=== PATIENT | male | born 1940 | race Caucasian/White ===

== ENCOUNTER 2021-10-19 10:20 | Observation (INO) ==
[2021-10-19 11:23] LABS: Basophils # 0.1 K/mcL (0.0-0.2); Basophils % 0.6 %; Eosinophils # 0.2 K/mcL (0.0-0.6); Eosinophils % 2.2 %; Hematocrit 37.8 % (37.5-50.1); Hemoglobin 13.4 g/dL (12.9-16.9); Immature Granulocytes % 0.8 % (0-4); Lymphocytes # 1.8 K/mcL (0.6-4.6); Lymphocytes % 17.6 %; Mean Corpuscular HGB Conc 35.4 g/dL (31.6-35.5); Mean Corpuscular Hemoglobin 32.4 pg (28.0-33.3); Mean Corpuscular Volume 91.3 fL (83.0-100.0); Mean Platelet Volume 9.7 fL (9.4-12.4); Monocytes # 0.8 K/mcL (0.0-1.3); Monocytes % 8.4 %; Platelet Count 287 K/mcL (140-400); Red Blood Count 4.14 M/mcL (4.19-5.50); Segmented Neutrophils % 70.4 %
[2021-10-19] MEDS ORDERED: Iopamidol - 370 500 ML MLS IVP ONE (11:30)
[2021-10-19 11:42] LABS: Albumin 4.3 g/dL (3.5-5.7); Albumin/Globulin Ratio 1.3 (1.1-2.2); Bilirubin,Direct 0.1 mg/dL (0.0-0.2); Bilirubin,Indirect 0.4 mg/dL (0.0-1.0); Bilirubin,Total 0.5 mg/dL (0.3-1.0); Calcium 9.7 mg/dL (8.6-10.3); Globulin 3.2 g/dL (2.4-3.5); Potassium 3.8 mEq/L (3.5-5.1); Total Protein 7.5 g/dL (6.4-8.9)
[2021-10-19 12:27] LABS: Bilirubin,Urine Negative (Negative); Blood,Urine Trace (Negative); Clarity,Urine Clear (Clear); Color,Urine Colorless (Yellow); Glucose,Urine (UA) Normal (Normal); Ketones,Urine Negative (Negative); Leukocyte Esterase,Urine Negative (Negative); Nitrite,Urine Negative (Negative); Protein,Urine Negative (Neg-Trace); RBC,Urine 0-3 per hpf (0-3); Specific Gravity,Urine 1.021 (1.010-1.025); Urobilinogen,Urine Normal (Normal); WBC,Urine 0-3 per hpf (0-3)
[2021-10-19] MEDS ORDERED: Ibuprofen 400 MG TABLET PO ONE (18:09)
[2021-10-19] MEDS: Simethicone 80 MG TAB.CHEW PO SCH ×2 (18:26→21:01)
[2021-10-19] MEDS ORDERED: Naloxone 0.4 MG/ML INJ IVP PRN (19:42)
[2021-10-19] MEDS ORDERED: lisinopriL 20 MG TABLET PO SCH (19:45)
[2021-10-19] MEDS: lisinopriL 20 MG TABLET PO SCH (21:01)
[2021-10-19] MEDS ORDERED: NIFEdipine Immed Rel 10 MG CAPSULE PO ONE (21:18)
[2021-10-20] MEDS ORDERED: Acetaminophen IV 1,000 MG/100 ML BAG IVPB ONE (00:08)
[2021-10-20] MEDS ORDERED: Ondansetron 4 MG/2 ML VIAL IVP ONE (00:46)
[2021-10-20] MEDS: Melatonin 3 MG TABLET PO SCH ×2 (03:40→20:46)
[2021-10-20 04:51] LABS: Hematocrit 35.5 % (37.5-50.1); Hemoglobin 12.6 g/dL (12.9-16.9); Mean Corpuscular HGB Conc 35.5 g/dL (31.6-35.5); Mean Corpuscular Hemoglobin 32.2 pg (28.0-33.3); Mean Corpuscular Volume 90.8 fL (83.0-100.0); Mean Platelet Volume 9.7 fL (9.4-12.4); Platelet Count 288 K/mcL (140-400); Red Blood Count 3.91 M/mcL (4.19-5.50)
[2021-10-20 04:52] LABS: White Blood Count 17.7 K/mcL (4.3-11.1)
[2021-10-20 05:13] LABS: Calcium 8.9 mg/dL (8.6-10.3); Potassium 3.6 mEq/L (3.5-5.1)
[2021-10-20] MEDS ORDERED: Acetaminophen 325 MG TABLET PO ONE (05:24)
[2021-10-20] MEDS: *HR* Enoxaparin 40 MG/0.4 ML SYRINGE SQ SCH (05:24)
[2021-10-20] MEDS: Simethicone 80 MG TAB.CHEW PO SCH (08:18)
[2021-10-20] MEDS: lisinopriL 20 MG TABLET PO SCH (08:18)
[2021-10-20] MEDS ORDERED: lisinopriL 10 MG TABLET PO ONE (12:30)
[2021-10-20 17:27] LABS: Bilirubin,Urine Negative (Negative); Blood,Urine Moderate (Negative); Clarity,Urine Clear (Clear); Color,Urine Yellow (Yellow); Glucose,Urine (UA) Normal (Normal); Ketones,Urine 20 mg/dL (Negative); Leukocyte Esterase,Urine Negative (Negative); Mucus,Urine Few per lpf (None-Few); Nitrite,Urine Negative (Negative); PH,Urine 6.5 pH Units (5.0-8.0); Protein,Urine Trace mg/dL (Neg-Trace); RBC,Urine 50-100 per hpf (0-3); Specific Gravity,Urine 1.025 (1.010-1.025); Urobilinogen,Urine Normal (Normal)
[2021-10-20] MEDS ORDERED: Ibuprofen 400 MG TABLET PO ONE (18:40)
[2021-10-20 21:36] LABS: Hematocrit 33.2 % (37.5-50.1); Hemoglobin 11.9 g/dL (12.9-16.9); Mean Corpuscular HGB Conc 35.8 g/dL (31.6-35.5); Mean Corpuscular Hemoglobin 32.2 pg (28.0-33.3); Mean Corpuscular Volume 89.7 fL (83.0-100.0); Mean Platelet Volume 9.7 fL (9.4-12.4); Platelet Count 276 K/mcL (140-400); White Blood Count 16.2 K/mcL (4.3-11.1)
[2021-10-20] MEDS ORDERED: *HR* LORazepam 2 MG/ML VIAL IVP ONE (21:39)
[2021-10-21] MEDS ORDERED: Ondansetron 4 MG/2 ML VIAL IVP PRN (02:15)
[2021-10-21] MEDS ORDERED: *HR* LORazepam 2 MG/ML VIAL IVP ONE (02:17)
[2021-10-21] MEDS: levoFLOXacin 750 MG/150 ML 750 MG/150 ML BAG IVPB SCH (02:42)
[2021-10-21] MEDS ORDERED: *HR* HYDROcodone/Acet 5/325 mg TABLET PO ONE (05:02)
[2021-10-21] MEDS: *HR* Enoxaparin 40 MG/0.4 ML SYRINGE SQ SCH (05:13)
[2021-10-21 05:22] LABS: Basophils % 0.2 %; Eosinophils % 0.1 %; Hemoglobin 11.7 g/dL (12.9-16.9); Immature Granulocytes % 0.7 % (0-4); Lymphocytes % 6.2 %; Mean Corpuscular HGB Conc 35.5 g/dL (31.6-35.5); Mean Corpuscular Hemoglobin 31.8 pg (28.0-33.3); Mean Corpuscular Volume 89.7 fL (83.0-100.0); Mean Platelet Volume 10.1 fL (9.4-12.4); Monocytes # 1.2 K/mcL (0.0-1.3); Monocytes % 7.5 %; Neutrophils # 13.8 K/mcL (1.6-8.9); Platelet Count 272 K/mcL (140-400); Red Blood Count 3.68 M/mcL (4.19-5.50); Red Cell Distribution Width 11.9 % (11.5-14.5); Segmented Neutrophils % 85.3 %; White Blood Count 16.2 K/mcL (4.3-11.1)
[2021-10-21 05:37] LABS: Calcium 8.6 mg/dL (8.6-10.3); Magnesium 1.9 mg/dL (1.6-2.6); Phosphorous 2.6 mg/dL (2.7-4.5); Potassium 3.5 mEq/L (3.5-5.1)
[2021-10-21 06:01] LABS: Folate 16.8 ng/mL (3.0-16.0)
[2021-10-21] MEDS: 0.9 % Sodium Chloride 1,000 ML IVC SCH ×2 (08:21→21:26)
[2021-10-21] MEDS: lisinopriL 20 MG TABLET PO SCH (08:25)
[2021-10-21] MEDS: *HR* HYDROcodone/Acet 5/325 mg TABLET PO PRN (16:15)
[2021-10-21 20:26] LABS: Calcium 8.1 mg/dL (8.6-10.3); Potassium 3.4 mEq/L (3.5-5.1)
[2021-10-21] MEDS: Melatonin 3 MG TABLET PO SCH (21:26)
[2021-10-22] MEDS: *HR* HYDROcodone/Acet 5/325 mg TABLET PO PRN ×3 (00:17→22:33)
[2021-10-22] MEDS: levoFLOXacin 750 MG/150 ML 750 MG/150 ML BAG IVPB SCH (02:55)
[2021-10-22] MEDS: QUEtiapine Fumarate 25 MG TABLET PO PRN (04:01)
[2021-10-22] MEDS: *HR* Enoxaparin 40 MG/0.4 ML SYRINGE SQ SCH (05:05)
[2021-10-22 05:59] LABS: Basophils % 0.2 %; Eosinophils # 0.1 K/mcL (0.0-0.6); Eosinophils % 0.8 %; Hematocrit 30.2 % (37.5-50.1); Hemoglobin 10.5 g/dL (12.9-16.9); Immature Granulocytes % 0.7 % (0-4); Lymphocytes # 1.3 K/mcL (0.6-4.6); Lymphocytes % 10.7 %; Mean Corpuscular HGB Conc 34.8 g/dL (31.6-35.5); Mean Corpuscular Hemoglobin 31.7 pg (28.0-33.3); Mean Corpuscular Volume 91.2 fL (83.0-100.0); Monocytes % 8.1 %; Neutrophils # 9.8 K/mcL (1.6-8.9); Platelet Count 249 K/mcL (140-400); Red Blood Count 3.31 M/mcL (4.19-5.50); Red Cell Distribution Width 12.3 % (11.5-14.5); Segmented Neutrophils % 79.5 %; White Blood Count 12.3 K/mcL (4.3-11.1)
[2021-10-22 06:24] LABS: Calcium 8.2 mg/dL (8.6-10.3); Magnesium 1.9 mg/dL (1.6-2.6); Phosphorous 2.5 mg/dL (2.7-4.5); Potassium 3.4 mEq/L (3.5-5.1)
[2021-10-22] MEDS: lisinopriL 20 MG TABLET PO SCH (08:21)
[2021-10-22] MEDS: 0.9 % Sodium Chloride 1,000 ML IVC SCH ×2 (10:20→22:29)
[2021-10-22] MEDS: Melatonin 3 MG TABLET PO SCH (22:28)
[2021-10-23] MEDS: QUEtiapine Fumarate 25 MG TABLET PO PRN (01:51)
[2021-10-23 03:01] LABS: Basophils # 0.1 K/mcL (0.0-0.2); Basophils % 0.7 %; Eosinophils # 0.2 K/mcL (0.0-0.6); Hematocrit 31.1 % (37.5-50.1); Hemoglobin 11.1 g/dL (12.9-16.9); Immature Granulocytes % 0.7 % (0-4); Lymphocytes # 1.9 K/mcL (0.6-4.6); Lymphocytes % 20.9 %; Mean Corpuscular HGB Conc 35.7 g/dL (31.6-35.5); Mean Corpuscular Hemoglobin 32.9 pg (28.0-33.3); Mean Corpuscular Volume 92.3 fL (83.0-100.0); Mean Platelet Volume 9.9 fL (9.4-12.4); Monocytes % 10.6 %; Neutrophils # 5.9 K/mcL (1.6-8.9); Platelet Count 256 K/mcL (140-400); Red Blood Count 3.37 M/mcL (4.19-5.50); Red Cell Distribution Width 12.4 % (11.5-14.5); Segmented Neutrophils % 65.1 %; White Blood Count 9.1 K/mcL (4.3-11.1)
[2021-10-23 03:20] LABS: Calcium 8.3 mg/dL (8.6-10.3); Magnesium 1.9 mg/dL (1.6-2.6); Phosphorous 2.6 mg/dL (2.7-4.5); Potassium 3.5 mEq/L (3.5-5.1)
[2021-10-23] MEDS: levoFLOXacin 750 MG/150 ML 750 MG/150 ML BAG IVPB SCH (03:23)
[2021-10-23] MEDS: *HR* Enoxaparin 40 MG/0.4 ML SYRINGE SQ SCH (05:49)
[2021-10-23] MEDS: *HR* HYDROcodone/Acet 5/325 mg TABLET PO PRN ×2 (09:13→15:52)
[2021-10-23] MEDS: lisinopriL 20 MG TABLET PO SCH (09:14)
[2021-10-23] MEDS: 0.9 % Sodium Chloride 1,000 ML IVC SCH ×2 (09:18→22:11)
[2021-10-23 12:59] LABS: Influenza A PCR Negative (Negative); Influenza B PCR Negative (Negative); Resp. Syncytial Virus PCR Negative (Negative)
[2021-10-23 13:13] LABS: SARS-CoV-2 by PCR (In House) Negative (Negative)
[2021-10-23] MEDS: Melatonin 3 MG TABLET PO SCH (21:08)
[2021-10-24] MEDS: levoFLOXacin 750 MG/150 ML 750 MG/150 ML BAG IVPB SCH (02:23)
[2021-10-24] MEDS: *HR* Enoxaparin 40 MG/0.4 ML SYRINGE SQ SCH (03:32)
[2021-10-24] MEDS: *HR* HYDROcodone/Acet 5/325 mg TABLET PO PRN (03:32)
[2021-10-24] MEDS: lisinopriL 20 MG TABLET PO SCH (08:27)
[2021-10-24 15:14] VITALS: BP 161/96; PULSE 107; TEMP 98; O2SAT 94
== END 2021-10-24 19:23 ==
LOC: 3BNU 10:20 → EMEROOARM 10:20 → SUATTDRO 14:04 → 3BNU 15:25
PROVIDERS: ADMIT Student in an Organized Health Care Education/Training Program; ATTEND Internal Medicine